=== PATIENT | male | born 1975 | race Caucasian/White ===

== ENCOUNTER 2016-10-21 17:00 | Observation (INO) | payer SELFPAY ==
[~2016-10-21] VITALS: Ht 185.4 cm; Wt 99.6 kg
--- NOTE | ~2016-10-21 | ECHO ---
Transthoracic Echocardiography Report (TTE) Demographics Patient Name SLIME PRADHAN Date of Study 10/22/2016 Patient Number [id number] Visit Number [id number] Date of 1975 Room Number [id number] Gender Male Number Age 41 year(s) Referring Ifeoma Petty [employer] Room Supervisor Angelo Scott Physician MD Harrison Christopher RD, RVT Physician Interpreting Ifeoma Petty Hand Flesher Physician Supervising Ordering Ifeoma Petty MD/MLP Physician Nurse Stress Water Well Driller Conclusions Contractility Score Summary Normal Left Ventricular contractility was noted. Summary Normal cardiac chamber sizes. No significant valvular abnormalities. Procedure Type of Study TTE procedure:2D Echocardiogram, M-Mode, Doppler , Color Doppler. Procedure Date Date: 10/22/2016 Start: 07:53 AM Study Location: Inpatient Portable Technical Quality: Adequate visualization Indications:Atrial Fibrillation w/ RVR. Appropriate Use Criteria: 9 Patient Status: Routine HR: 75 bpm BP: 141/61 mmHg M-Mode/2D Measurements LV Diastolic Dimension: 5.12 cm LV Systolic Dimension: 3.48 cm LV Septum Diastolic: 1.4 cm LV PW Diastolic: 1.16 cm AO Root Dimension: 3.4 cm Cardiac Output: 5.59 l/min AV Cusp Separation: 2.7 cm RV Diastolic Dimension: 3.08 cm LA volume: 69 ml LVOT: 2.2 cm RV Base: 3.85 cm LVOT VTI: 19.6 cm RV Mid: 4.02 cm LV Stroke volume: 74.47 ml TAPSE: 1.88 cm TDI-S': 14.1 cm/s Doppler Measurements AV Peak Velocity: 1.25 m/s MV Peak E-Wave: 0.73 m/s AV Peak Gradient: 6.25 mmHg MV Peak A-Wave: 0.47 m/s AV Mean Gradient: 3 mmHg MV E/A Ratio: 1.55 LVOT Peak Velocity: 0.79 m/s MV P1/2t: 43 msec TR Gradient:18.32 mmHg PV Peak Velocity: 1.1 m/s PV Peak Gradient: 4.84 mmHg E' Septal Velocity: 0.11 m/s A' Septal Velocity: 0.08 m/s E' Lateral Velocity: 0.14 m/s A' Lateral Velocity: 0.07 m/s Findings Left Ventricle Normal left ventricle size and function. Right Ventricle Normal right ventricle structure and function. Left Atrium Normal left atrial size. Right Atrium Normal right atrial size. IVC measures 1.46 cm with inspiratory collapse. Mitral Valve Normal mitral valve structure and function. Trivial mitral regurgitation by color Doppler. Aortic Valve Normal aortic valve structure and function. Tricuspid Valve Normal tricuspid valve structure and function. Trivial tricuspid regurgitation by color Doppler. Pulmonic Valve Normal pulmonic valve structure and function. Trivial pulmonic valve regurgitation by color Doppler. Pericardial Effusion No evidence of pericardial effusion. Miscellaneous Visualized portions of the aortic root and ascending aorta appear normal in size. Pleural Effusion No evidence of pleural effusion. Contractility Score LV regional wall motion:(0-Non visualized 1-Normal 2-Hypokinesis 3-Akinesis 4-Dyskinesis 5-Aneurysm) Signature dtt: Malinda Dia dtd: 10/22/16 0753 Physician Self Edit
--- NOTE | ~2016-10-21 | CON ---
PATIENT'S NAME: [facility] AGE: 41 Y [address] ROOM: [place] [address] LOCATION: [facility]PCU ADMIT DATE: 10/21/2016 Consultation DISCHARGE DATE: FAMILY PHYSICIAN: PHYSICIAN, UNKNOWN ATTENDING PHYSICIAN: Jac Drew DATE OF CONSULTATION: 10/21/[address] Walter. HISTORY OF PRESENT ILLNESS: Mr. Vivar is a 41-year-old male patient who presented to the emergency room in [place] with AFib with rapid ventricular response. He was trying to eat his lunch when he developed a fast heartbeat which he could tell. Initially, his heart rate was in the 180s at which time he had some tightness across the chest which has gotten better and he received his Cardizem IV. Currently, now his heart rate is about 110. He is reasonably asymptomatic. He has had this once before in 2014 at which time his echocardiogram was normal. He had minimal amount of pericardial fluid around. The patient has no symptoms of chest pains otherwise. He does not have any structured exercise program. He is very active at his work and he works in [employer]. He has no paroxysmal nocturnal dyspnea. He is in functional class II with no orthopnea. There is no syncope, presyncope, or ankle swelling. The patient has no history of hypertension, type 2 diabetes, elevated cholesterol, tobacco abuse, or family history of premature coronary artery disease. He does chew tobacco. There is no history of IA, rheumatic fever, heart murmur, heart failure, dilated or enlarged heart. MEDICATIONS: None. ALLERGIES: NONE. PAST MEDICAL HISTORY: 1. Seasonal allergies. 2. Migraine headaches. 3. [place] tooth removal. SOCIAL HISTORY: PATIENT'S NAME: [facility] AGE: 41 Y [address] ROOM: [place] [address] LOCATION: [facility]PCU ADMIT DATE: 10/21/2016 Consultation DISCHARGE DATE: FAMILY PHYSICIAN: PHYSICIAN, UNKNOWN ATTENDING PHYSICIAN: Jac Drew He denies recreational drugs. He does drink 5-6 beers 2-3 times a week at the most. He drank about 5 or 6 beers yesterday. His appetite and weight are stable. Sleep is normal. FAMILY HISTORY: No premature coronary artery disease. REVIEW OF SYSTEMS: A 12-point review of systems reveal corrective lenses. Otherwise, essentially unremarkable. PHYSICAL EXAMINATION: VITAL SIGNS: His blood pressure is 120/80, he is in no acute distress, heart rate is in the 110s and irregular, respiration is 18, afebrile. HEENT: Normal. NECK: Supple with no JVD, thyromegaly, lymphadenopathy, or carotid bruit. HEART: PMI is not well-located. First and second heart sounds are irregular, there are no added sounds or murmurs. CHEST: Clear to auscultation. ABDOMEN: Soft and nontender. EXTREMITIES: Reveal no edema. CENTRAL NERVOUS SYSTEM: Intact. LABORATORY DATA: I do not see an EKG here. ASSESSMENT: A 41-year-old male patient with a second episode of atrial fibrillation. His CHADS2-VASc score is 0. He is moderately symptomatic because of the fast heartbeat. From the history, it appears as if alcohol may have something to do with his atrial fibrillation. RECOMMENDATION: 1. We will have him stop chewing. 2. Get TSH, troponin, D-dimer, and a BNP. In the meantime, we will keep him n.p.o. in the morning, if he is not back in sinus rhythm, we will get him cardioverted before sending him home with possibly on an antiarrhythmic with a caution to completely stop drinking. Again, I appreciate this opportunity to participate in the care of Mr. Vivar. JAC DREW MD PATIENT'S NAME: SLIME VIVAR [facility] AGE: 41 Y [address] ROOM: [id number] [place] [id number] [facility] ADMIT DATE: 10/21/2016 Consultation DISCHARGE DATE: FAMILY PHYSICIAN: PHYSICIAN, UNKNOWN ATTENDING PHYSICIAN: Jac Drew/winsome /[id number] d: 10/22/16 0134 t: 10/22/16 1901, CONSULTATION REPORT
[~2016-10-21 17:00] MED LIST: ACETAMINOPHEN650 M2 PO; ASPIRIN (CHILDR81 MG PO; FOLIC ACID1 MG PO; LOPRESSOR25 MG PO; NICODERM (HABIT14 MG TOP; THERAGRAN-M1 TAB PO; VITAMIN B-1100 MG PO
--- NOTE | 2016-10-21 18:09 | NUR ---
patient is 41 yo male admitted this evening with new onset AFIB w/RVR. states he has felt an occasional irregularity in his chest. was working in [employer] at the [employer]. he started feeling badly.. he went back to [place] to the ER there and was transferred here. has saline locks in both right and left dorsal hands without erythema or edema noted at the sites. education is given as documemented. patient denies questions. pneumatics are on bilat. patient denies needs. call light is within reach. Report is given to CHANDNI Lozano.
--- NOTE | 2016-10-22 04:38 | NUR ---
Patient A/Ox3. VSS on RA. Standby assist. Lungs clear. Bowel sound present. Bilateral hand IV's. Heparin gtt at 1200 units/hr, next ptthp 0800. Cardizem gtt at 5mg/hr. Patient now Sinus Rhythm, aware and want the cardizem gtt continue at 5mg/hr. NPO. No complaints.
--- NOTE | 2016-10-22 11:58 | NUR ---
Introdcued self and care management services to patient and girlfriend at bedside. Planning on going home on discharge, hoping to go home today, waiting for physician to round. Denies concerns about going home, denies needs. Will follow.
[2016-10-22] MEDS ORDERED: ASPIRIN325 MG PO (16:16)
[2016-10-22] MEDS ORDERED: MULTAQ400 MG PO (16:17)
--- NOTE | 2016-10-22 16:30 | NUR ---
A&O.VVS. UP AD NUZHAT. LS CLEAR. NO PAIN. CSM WNL. ECHO DONE TODAY. CARDIZEM AND HEP GTT RUNNING. DC HOME TODAY IV'S BILAT HANDS DC'D. AMBULATE TO LOBBY WITH GF TO PRIVATE VEHICLE HOME. INSTRUCTIONS REVIEWED
== END 2016-10-22 16:50 | disposition disaster alternative care site (69) ==
LOC: GPCU 17:07
PROVIDERS: ADMIT Internal Medicine Interventional Cardiology
DX: I48.0 Paroxysmal atrial fibrillation (principal); G43.909 Migraine, unspecified, not intractable, without status migrainosus; K08.409 Partial loss of teeth, unspecified cause, unspecified class; F17.228 Nicotine dependence, chewing tobacco, with other nicotine-induced disorders
CPT/HCPCS: G0378; J1644; J7040